=== PATIENT | female | born 1945 | race Caucasian/White ===

== ENCOUNTER 2020-06-27 | Emergency (ER) | payer MEDICARE ==
[2020-06-27 17:10] LABS: URINE BILIRUBIN - DIPSTICK NEGATIVE (NEGATIVE); URINE BLOOD DIPSTICK NEGATIVE (NEGATIVE); URINE COLOR YELLOW; URINE GLUCOSE - DIPSTICK NEGATIVE (NEGATIVE); URINE KETONE TRACE mg/dL (NEGATIVE); URINE LEUK ESTERASE NEGATIVE (NEGATIVE); URINE PROTEIN - DIPSTICK TRACE mg/dL (NEG-TRACE); URINE SPECIFIC GRAVITY >=1.030; URINE UROBILINOGEN - DIPSTICK 0.2 E.U./dL (0.2)
[2020-06-27 17:11] LABS: URINE NITRITE - DIPSTICK NEGATIVE (Negative)
[2020-06-27] MEDS ORDERED: MEDDOSEPAK PO ×2 (17:46→17:48)
[2020-06-27] MEDS ORDERED: CYCLOBENZAPRINE10 MG PO ×2 (17:46→17:48)
[2020-06-27] MEDS ORDERED: LIPITOR10 M1 PO (18:18)
[2020-06-28] MEDS ORDERED: MEDDOSEPAK PO (10:03)
[2020-06-28] MEDS ORDERED: CYCLOBENZAPRINE10 MG PO (10:03)
== END 2020-06-27 18:28 | disposition home or self-care (01) ==
DX: S39.012A Strain of muscle, fascia and tendon of lower back, initial encounter (principal); E78.5 Hyperlipidemia, unspecified; X58.XXXA Exposure to other specified factors, initial encounter